=== PATIENT | female | born 1960 | race Caucasian/White ===

== ENCOUNTER 2022-02-20 09:16 | Outpatient (CLI) | payer BC | END 2022-02-20 09:27 | disposition home or self-care (01) | LOC: MAMO-SONO 09:16 | DX: Z12.31 Encounter for screening mammogram for malignant neoplasm of breast (principal); N60.11 Diffuse cystic mastopathy of right breast; N60.12 Diffuse cystic mastopathy of left breast; R10.9 Unspecified abdominal pain ==

== ENCOUNTER 2022-06-29 11:40 | Outpatient (CLI) | payer BC | END 2022-06-29 11:46 | disposition home or self-care (01) | LOC: SONOGRAMA 11:40 | DX: E04.1 Nontoxic single thyroid nodule (principal) ==

== ENCOUNTER 2024-01-15 10:52 | Outpatient (CLI) | payer BC | END 2024-01-15 11:06 | disposition home or self-care (01) | LOC: MAMO-SONO 10:52 → EDBD 10:52 → MAMO-SONO 11:06 | DX: N60.29 Fibroadenosis of unspecified breast (principal); N60.21 Fibroadenosis of right breast; N60.22 Fibroadenosis of left breast ==

== ENCOUNTER 2024-12-24 08:59 | Outpatient (CLI) | payer BC | END 2024-12-24 09:03 | disposition home or self-care (01) | LOC: SONOGRAMA 08:59 | PROVIDERS: ATTEND Internal Medicine | DX: E04.2 Nontoxic multinodular goiter (principal) ==